=== PATIENT | female | born 1945 | race Caucasian/White ===

== ENCOUNTER 2020-06-17 18:03 | Observation (INO) ==
[2020-06-17] MEDS ORDERED: ALUM/MAG/SIMETH/LIDO VISC 1:1 30 ML BOTTLE PO STA (18:29)
[2020-06-17] MEDS ORDERED: NITROGLYCERIN 2% OINT 1 INCH/GM PACK TOP STA (18:29)
[2020-06-17] MEDS ORDERED: KETOROLAC 30 MG/1 ML VIAL IV STA (18:29)
[2020-06-17] MEDS ORDERED: ASPIRIN 325 MG TABLET PO STA (18:29)
[2020-06-17] MEDS ORDERED: ONDANSETRON 4 MG/2 ML VIAL IV STA (18:29)
[2020-06-17 18:38] LABS: Basophils # 0.1 10*3/uL (0.0-0.2); Eosinophils # 0.1 10*3/uL (0.0-0.87); Eosinophils % 1.6 % (0.00-10.9); Hemoglobin 13.9 GM/DL (12.0-16.0); Immature Granulocytes % 0.1 %; Immature Granulocytes Absolute 0.01 #; Lymphocytes # 3.2 10*3/uL (1.4-4.0); Lymphocytes % 43.6 % (21.3-54.2); Mean Corpuscular HGB Conc 33.1 GM/DL (32-36); Mean Corpuscular Volume 94.6 FL (87-102); Mean Platelet Volume 9.9 FL (9.6-12.0); Monocytes % 10.6 % (1.7-12.7); Neutrophils % 43.1 % (38.7-73.9); Platelet Count 259 T/CUMM (130-400); Red Blood Count 4.44 MC/CUMM (3.8-5.5); Red Cell Distribution Width 12.7 % (9.3-17.3); White Blood Count 7.4 T/CUMM (4-12)
[2020-06-17 18:51] LABS: PT Patient Result 10.9 SECS (9.8-11.9)
[2020-06-17 18:58] LABS: Bilirubin,Total 0.4 MG/DL (0.2-1.0); Calcium 9.2 MG/DL (8.5-10.1); Osmolality,Calculated 274.5 MOS/KG (273-304)
[2020-06-17] MEDS ORDERED: POTASSIUM CHLORIDE 20 MEQ TABLET PO STA (19:48)
[2020-06-17] MEDS ORDERED: ENOXAPARIN 100 MG/ML SYRINGE SUBCUT STA (19:51)
[2020-06-17] MEDS ORDERED: ACETAMINOPHEN 325 MG TABLET PO PRN (22:00)
[2020-06-17] MEDS ORDERED: MEPERIDINE 25 MG/1 ML VIAL IM PRN (22:00)
[2020-06-17] MEDS ORDERED: SODIUM CHLORIDE 0.9% 1,000 ML IV SCH (22:00)
[2020-06-17] MEDS ORDERED: ONDANSETRON 4 MG/2 ML VIAL IV PRN (22:00)
[2020-06-17] MEDS: DOCUSATE SODIUM 100 MG CAPSULE PO SCH (22:21)
[2020-06-18] MEDS: NITROGLYCERIN 2% OINT 1 INCH/GM PACK TOP SCH ×2 (01:03→06:41)
[2020-06-18 05:48] LABS: Basophils # 0.1 10*3/uL (0.0-0.2); Eosinophils # 0.2 10*3/uL (0.0-0.87); Hematocrit 41.7 VOL% (35.7-47.0); Immature Granulocytes % 0.1 %; Immature Granulocytes Absolute 0.01 #; Lymphocytes # 4.3 10*3/uL (1.4-4.0); Lymphocytes % 53.6 % (21.3-54.2); Mean Corpuscular HGB Conc 33.6 GM/DL (32-36); Mean Corpuscular Volume 96.3 FL (87-102); Mean Platelet Volume 10.5 FL (9.6-12.0); Monocytes % 9.1 % (1.7-12.7); Neutrophils % 34.2 % (38.7-73.9); Platelet Count 259 T/CUMM (130-400); Red Blood Count 4.33 MC/CUMM (3.8-5.5); Red Cell Distribution Width 12.8 % (9.3-17.3)
[2020-06-18] MEDS ORDERED: LEVOTHYROXINE 88 MCG TABLET PO SCH (06:00)
[2020-06-18 06:16] LABS: Albumin 3.5 G/DL (3.4-5.0); Calcium 8.9 MG/DL (8.5-10.1); Osmolality,Calculated 277.4 MOS/KG (273-304); Risk Ratio 6.03; Total Protein 7.2 G/DL (6.4-8.3); VLDL CHOLESTEROL 84.2 MG/DL
[2020-06-18 06:19] LABS: Eosinophils 2 % (0-10); Hypochromasia 1+; Lymphocytes 50 % (20-55); Platelet Estimate Adequate; Segmented Neutrophils 39 % (50-85); Total Cells Counted 100
[2020-06-18 06:20] LABS: Atypical Lymphocytes Few
[2020-06-18] MEDS ORDERED: PANTOPRAZOLE 40 MG TABLET PO SCH (09:00)
[2020-06-18] MEDS ORDERED: ASPIRIN EC 325 MG TABLET PO SCH (09:00)
[2020-06-18] MEDS ORDERED: ENOXAPARIN 60 MG/0.6 ML SYRINGE SUBCUT SCH (09:00)
[2020-06-18] MEDS: DOCUSATE SODIUM 100 MG CAPSULE PO SCH (09:14)
[2020-06-18] MEDS ORDERED: LOSARTAN 25 MG TABLET PO SCH (09:40)
[2020-06-18 12:06] LABS: Barbiturates Screen,Urine Negative (Negative); Benzodiazepines Screen,Urine Negative (Negative); Cannabinoid Screen,Urine Negative (Negative); Opiate Screen,Urine Negative (Negative); Phencyclidine Screen,Urine Negative (Negative)
[2020-06-18 12:28] LABS: Apearance,Urine Clear (Clear); Bacteria,Urine Many /HPF (Few); Bilirubin,Urine Negative (Negative); Blood, Urine Trace mg/dL (Negative); Glucose,Urine (UA) Negative (Negative); Ketones,Urine Negative (Negative); Nitrite,Urine Negative (Negative); Protein,Urine Negative; RBC,Urine Rare /HPF (0-4); Squamous Epithelial Cell,Urine Few /HPF (0-10); Urine Color Yellow (Yellow); Urine Urobilinogen < 2.0 EU/DL (0.2-1.0); WBC,Urine TNTC /HPF (0-6)
[2020-06-18 15:54] VITALS: BP 186/93
[2020-06-19] MEDS ORDERED: ASPIRIN EC 81 MG TABLET PO SCH (09:00)
== END 2020-06-18 16:35 | disposition home or self-care (01) ==
LOC: N.EDINP 18:03 → N.ED 18:03 → N.TELEN 20:18
PROVIDERS: ADMIT Family Medicine; ATTEND Family Medicine

== ENCOUNTER 2020-06-20 06:37 | Observation (INO) ==
[2020-06-20 07:28] LABS: Basophils # 0.1 10*3/uL (0.0-0.2); Basophils % 0.8 % (0.0-0.8); Eosinophils # 0.2 10*3/uL (0.0-0.87); Eosinophils % 2.2 % (0.00-10.9); Hematocrit 41.5 VOL% (35.7-47.0); Hemoglobin 14.2 GM/DL (12.0-16.0); Immature Granulocytes % 0.3 %; Immature Granulocytes Absolute 0.02 #; Lymphocytes # 2.6 10*3/uL (1.4-4.0); Lymphocytes % 36.4 % (21.3-54.2); Mean Corpuscular HGB Conc 34.2 GM/DL (32-36); Mean Corpuscular Volume 92.6 FL (87-102); Mean Platelet Volume 10.5 FL (9.6-12.0); Monocytes % 9.7 % (1.7-12.7); Neutrophils % 50.6 % (38.7-73.9); Platelet Count 257 T/CUMM (130-400); Red Blood Count 4.48 MC/CUMM (3.8-5.5); Red Cell Distribution Width 12.7 % (9.3-17.3); White Blood Count 7.2 T/CUMM (4-12)
[2020-06-20 07:44] LABS: Albumin 3.7 G/DL (3.4-5.0); Bilirubin,Total 0.5 MG/DL (0.2-1.0); Calcium 9.3 MG/DL (8.5-10.1); Osmolality,Calculated 274.7 MOS/KG (273-304); Thyroid Stimulating Hormone 7.09 uIU/ml (0.358-3.74); Total Protein 7.6 G/DL (6.4-8.3)
[2020-06-20 08:54] LABS: Apearance,Urine CLEAR (Clear); Bacteria,Urine Occasional /HPF (Few); Bilirubin,Urine Negative (Negative); Blood, Urine Small mg/dL (Negative); Glucose,Urine (UA) Negative (Negative); Hyaline Casts,Urine 1 /LPF (0-3); Ketones,Urine Negative (Negative); Mucus,Urine Moderate /LPF (Occasional); Nitrite,Urine Negative (Negative); Protein,Urine Negative; RBC,Urine 3 /HPF (0-4); Squamous Epithelial Cell,Urine Occasional /HPF (0-10); Urine Color Yellow (Yellow); Urine Specific Gravity 1.012 (1.001-1.035); Urine Urobilinogen < 2.0 EU/DL (0.2-1.0); WBC,Urine 29 /HPF (0-6)
[2020-06-20] MEDS ORDERED: cefTRIAXone 1,000 MG in SODIUM CHLORIDE 0.9% 100 ML IV STA (08:55)
[2020-06-20] MEDS ORDERED: LORazepam 2 MG/1 ML VIAL IV STA ×2 (09:07→15:03)
[2020-06-20] MEDS ORDERED: LORazepam 2 MG/1 ML VIAL ONE (09:08)
[2020-06-20] MEDS ORDERED: ONDANSETRON 4 MG/2 ML VIAL IV PRN (09:17)
[2020-06-20] MEDS ORDERED: ACETAMINOPHEN 325 MG TABLET PO PRN (09:17)
[2020-06-20] MEDS: SODIUM CHLORIDE 0.45% 1,000 ML IV SCH ×2 (12:30→21:27)
[2020-06-20] MEDS: ENOXAPARIN 40 MG/0.4 ML SYRINGE SUBCUT SCH (13:09)
[2020-06-20] MEDS ORDERED: LORazepam 2 MG/1 ML VIAL IM PRN (18:40)
[2020-06-20] MEDS ORDERED: ZIPRASIDONE 20 MG/1 ML VIAL IM PRN (18:41)
[2020-06-20] MEDS: DOCUSATE SODIUM 100 MG CAPSULE PO SCH (21:27)
[2020-06-20] MEDS: carvediloL 3.125 MG TABLET PO SCH (21:27)
[2020-06-21] MEDS: SODIUM CHLORIDE 0.45% 1,000 ML IV SCH ×3 (06:02→14:16)
[2020-06-21] MEDS ORDERED: LEVOTHYROXINE 88 MCG TABLET PO SCH (06:30)
[2020-06-21] MEDS: DOCUSATE SODIUM 100 MG CAPSULE PO SCH (08:27)
[2020-06-21] MEDS: carvediloL 3.125 MG TABLET PO SCH ×2 (08:28→17:16)
[2020-06-21] MEDS ORDERED: PANTOPRAZOLE 40 MG TABLET PO SCH (09:00)
[2020-06-21] MEDS ORDERED: cefTRIAXone 1,000 MG in SYRINGE 1 EACH IV SCH (09:00)
[2020-06-21] MEDS ORDERED: ROSUVASTATIN 20 MG TABLET PO SCH (09:00)
[2020-06-21] MEDS ORDERED: DULoxetine 30 MG CAPSULE PO SCH (09:00)
[2020-06-21] MEDS: ENOXAPARIN 40 MG/0.4 ML SYRINGE SUBCUT SCH (09:29)
[2020-06-21 12:35] VITALS: BP 141/56
[2020-06-22] MEDS ORDERED: MEMANTINE 5 MG TABLET PO SCH (09:00)
== END 2020-06-21 17:58 | disposition home health service (06) ==
LOC: N.ED 06:37 → INTOOBSV 09:17 → N.EDINP 09:17 → N.3E 18:28
PROVIDERS: ADMIT Family Medicine; ATTEND Family Medicine